=== PATIENT | female | born 1950 | race Caucasian/White ===

== ENCOUNTER 2022-07-14 11:45 | Outpatient (CLI) | payer MEDICARE, OTHER | END 2022-07-14 11:46 | disposition critical access hospital (66) | LOC: EMS 11:45 | DX: R55 Syncope and collapse (principal); R41.82 Altered mental status, unspecified; S01.511A Laceration without foreign body of lip, initial encounter; W18.39XA Other fall on same level, initial encounter; Y92.008 Other place in unspecified non-institutional (private) residence as the place of occurrence of the external cause | CPT/HCPCS: A0425; A0429 ==

== ENCOUNTER 2022-07-14 12:07 | Observation (INO) | payer MEDICARE, OTHER ==
--- NOTE | 2022-07-14 12:33 | ED Physician Documentation ---
History of Present Illness - Stated complaint Stated Complaint: SYNCOPE/FALL - Chief complaint Chief Complaint: Neuro - History obtained from History obtained from: Patient, Family, EMS - History of Present Illness Timing: Today Pain level max: 0 Pain level now: 0 - Additonal information Additional information: Patient is a 72-year-old female who presents to the emergency department after a syncopal event today. She states that she was in the bathroom and does not remember anything other than waking up on the floor. She was not using the toilet at the time. She did not have any prodrome. No headache. No chest pain. No palpitations. No lightheadedness. No dizziness. She states that she had mild body aches yesterday and took a Tylenol for this. She has taken 2 negative COVID tests. No coughing. No congestion. Does not have any history of syncope. No cardiac history. EMS reports that they did orthostatic vital signs in the field which were negative. Review of Systems Ten Systems: 10 systems reviewed and negative Constitutional: denies: Fever, Chills Throat: denies: Sore throat Cardiac: denies: Chest pain / pressure, Palpitations Respiratory: denies: Dyspnea, Cough GI: denies: Abdominal Pain, Nausea, Vomiting, Diarrhea Skin: denies: Rash Musculoskeletal: denies: Neck pain, Back pain Neurologic: denies: Headache PD PAST MEDICAL HISTORY - Past Medical History Past Medical History: Yes Cardiovascular: Hypertension - Present Medications Home Medications: Ambulatory Orders Medication Instructions Recorded Confirmed Non Formulary 30 mg PO DAILY 07/14/22 07/14/22 Valsartan 320 mg PO DAILY 07/14/22 07/14/22 amLODIPine [Norvasc] 10 mg PO DAILY 07/14/22 07/14/22 hydroCHLOROthiazide [Hydrodiuril] 25 mg PO DAILY 07/14/22 07/14/22 - Allergies Allergies/Adverse Reactions: Allergies Allergy/AdvReac Type Severity Reaction Status Date / Time Penicillins Allergy Unknown Verified 07/14/22 12:30 - Living Situation Living Situation: reports: With family Living Arrangement: reports: At home - Social History Does the pt have substance abuse?: No - Family History Family history: reports: Non contributory PD ED PE NORMAL - Vitals Vital signs reviewed: Yes - General General: Alert and oriented X 3, No acute distress, Well developed/nourished - HEENT HEENT: PERRL, Moist mucous membranes, Other (Small abrasion to the left upper lip. Normal intraoral exam. No scalp hematomas or palpable skull fractures. No facial bone tenderness or swelling.) - Neck Neck: Supple, no meningeal sign, No bony TTP - Cardiac Cardiac: RRR - Respiratory Respiratory: No respiratory distress, Clear bilaterally - Abdomen Abdomen: Soft, Non tender, Non distended - Derm Derm: Warm and dry, No rash - Extremities Extremities: No edema, No calf tenderness / cord - Neuro Neuro: Alert and oriented X 3 - Psych Psych: Normal mood, Normal affect Results - Vitals Vitals: Vital Signs - 24 hr 07/14/22 07/14/22 12:14 14:11 Temperature 38 C H Heart Rate 89 Heart Rate [ 90 Sitting] Heart Rate [ 103 H Standing] Heart Rate [ 76 Supine] Respiratory 16 Rate Blood Pressure 140/67 H Blood Pressure 131/73 H [Sitting] Blood Pressure 130/83 H [Standing] Blood Pressure 130/66 [Supine] O2 Saturation 99 Oxygen O2 Source Room air - EKG (time done) 1309 Rate: Rate (enter#) (80) Rhythm: NSR Clarence: Normal Intervals: Normal [place] QRS: Normal Ischemia: Normal ST segments - Labs Labs: Laboratory Tests 07/14/22 07/14/22 07/14/22 12:37 12:37 13:05 WBC RBC Hgb Hct MCV MCH MCHC RDW Plt Count MPV Neut # (Auto) Lymph # (Auto) [place] # (Auto) Eos # (Auto) Baso # (Auto) Absolute Nucleated RBC Nucleated RBC % Sodium 130 L Potassium 2.8 L Chloride 95 L Carbon Dioxide 21 Anion Gap 14.0 H BUN 21 H Creatinine 0.7 Estimated GFR (MDRD) 82 L Glucose 106 H Calcium 8.4 L Phosphorus 2.7 Magnesium 2.3 Total Bilirubin 1.0 AST 75 H ALT 44 Alkaline Phosphatase 55 Troponin I High Sens 10.1 Total Protein 6.6 L Albumin 3.5 Globulin 3.1 Albumin/Globulin Ratio 1.1 Lipase 32 07/14/22 Unknown WBC 7.4 RBC 4.13 L Hgb 11.8 L Hct 33.6 L MCV 81.4 MCH 28.6 MCHC 35.1 RDW 12.8 Plt Count 157 MPV 9.5 Neut # (Auto) 6.1 Lymph # (Auto) 0.8 L [place] # (Auto) 0.3 Eos # (Auto) 0.0 Baso # (Auto) 0.0 Absolute Nucleated RBC 0.00 Nucleated RBC % 0.0 Sodium Potassium Chloride Carbon Dioxide Anion Gap BUN Creatinine Estimated GFR (MDRD) Glucose Calcium Phosphorus Magnesium Total Bilirubin AST ALT Alkaline Phosphatase Troponin I High Sens Total Protein Albumin Globulin Albumin/Globulin Ratio Lipase - Rads (name of study) cxr Radiology: Final report received, EMP read contemporaneously, See rad report (no acute disease) PD MEDICAL DECISION MAKING - ED course Complexity details: reviewed results, re-evaluated patient, considered differential (No ST elevation NE, no aortic dissection, no PE, no tension pneumothorax, no aortic aneurysm), d/w patient, d/w family ED course: 72-year-old female with drop syncope today. No prodrome. Currently asymptomatic. Orthostatics negative. She is hyponatremic and hypokalemic. We will place the patient in observation for further telemetry monitoring and correction of her electrolytes. Patient does not have any cardiac history. Discussed the case with Dr. Terry, hospitalist accepts This document was made in part using voice recognition software. While efforts are made to proofread this document, sound alike and grammatical errors may occ ur. Departure - Departure Disposition: ED Place in Observation Clinical Impression: Hypokalemia, Hyponatremia Syncope Qualifiers: Syncope type: unspecified Qualified Code(s): R55 - Syncope and collapse
[2022-07-14 12:41] LABS: BASOPHILS % (AUTO) 0.4 %; HCT - HEMATOCRIT 33.6 % (37.0-47.0); HGB - HEMOGLOBIN 11.8 g/dL (12.0-16.0); LYMPHOCYTES # (AUTO) 0.8 10^3/uL (1.5-3.5); LYMPHOCYTES % (AUTO) 11.3 %; MEAN CORPUSCULAR HEMOGLOBIN 28.6 pg (27.0-31.0); MEAN CORPUSCULAR HGB CONC 35.1 g/dL (32.0-36.0); MEAN CORPUSCULAR VOLUME 81.4 fL (81.0-99.0); MEAN PLATELET VOLUME 9.5 fL (7.9-10.8); MONOCYTES # (AUTO) 0.3 10^3/uL (0.0-1.0); MONOCYTES % (AUTO) 4.5 %; NEUTROPHILS # (AUTO) 6.1 10^3/uL (1.5-6.6); NEUTROPHILS % (AUTO) 83.1 %; PLT - PLATELET COUNT 157 10^3/uL (130-450); RED BLOOD COUNT 4.13 10^6/uL (4.20-5.40); RED CELL DISTRIBUTION WIDTH 12.8 % (12.0-15.0); WHITE BLOOD COUNT 7.4 x10^3/uL (4.8-10.8)
--- NOTE | 2022-07-14 12:45 | XRAY Report ---
PROCEDURE: Chest 1 View X-Ray INDICATIONS: chest pain TECHNIQUE: One view of the chest was acquired. COMPARISON: None FINDINGS: Surgical changes and devices: None. Lungs and pleura: No pleural effusions or pneumothorax. Lungs are clear. Chronic interstitial doyle ges noted Mediastinum: Mediastinal contours appear normal. Heart size is normal. Bones and chest wall: No suspicious bony lesions. Overlying soft tissues appear unremarkable. Old healed left-sided rib fractures. IMPRESSION: Hyperinflation chronic interstitial changes as well as old healed left-sided rib fractures. No acute findings. Reviewed by: Cameron Davalos MD on 07/14/2022 11:44 AM WANDER Approved by: Cameron Davalos MD on 07/14/2022 11:44 AM WANDER Station ID: [id number]
[2022-07-14 13:01] LABS: ALBUMIN 3.5 g/dL (3.2-5.5); ALBUMIN/GLOBULIN RATIO 1.1 (1.0-2.2); CALCIUM 8.4 mg/dL (8.5-10.3); CREATININE 0.7 mg/dL (0.4-1.0); POTASSIUM 2.8 mmol/L (3.5-5.0); TOTAL PROTEIN 6.6 g/dL (6.7-8.2)
[2022-07-14 13:20] LABS: MAGNESIUM 2.3 mg/dL (1.7-2.8); PHOSPHORUS 2.7 mg/dL (2.5-4.6)
--- NOTE | 2022-07-14 13:23 | CT Report ---
PROCEDURE: CT brain without contrast INDICATIONS: syncope, head/neck pain TECHNIQUE: Noncontrast 4.5 mm thick angled axial sections acquired from the foramen magnum to the vertex. For r adiation dose reduction, the following was used: automated exposure control, adjustment of mA and/or kV according to patient size. COMPARISON: None. FINDINGS: Image quality: Excellent. CSF spaces: Basal cisterns are patent. No extra-axial fluid collections. Ventricles are normal in size and shape. Brain: No midline shift. No intracranial masses or hemorrhage. Valentine-white matter interface is norm al. Skull and face: Calvarium and visualized facial bones are intact, without suspicious lesions. Sinuses: Visualized sinuses and mastoids are clear. IMPRESSION: Mild atrophy and chronic ischemic change without intracranial hemorrhage or mass effect. Reviewed by: Cameron Davalos MD on 07/14/2022 12:22 PM WANDER Approved by: Cameron Davalos MD on 07/14/2022 12:22 PM AKDAQUAN Station ID: [id number]
--- NOTE | 2022-07-14 13:25 | CT Report ---
PROCEDURE: CT cervical spine without contrast INDICATIONS: syncope, head/neck pain TECHNIQUE: Noncontrast 3 mm thick sections acquired from the skull base to the T4 level. Sagittal and coronal r eformats were then constructed. For radiation dose reduction, the following was used: automated exp osure control, adjustment of mA and/or kV according to patient size. COMPARISON: None. FINDINGS: Image quality: Excellent. Bones: No fractures or dislocations. Visualized superior ribs are intact. Degenerative disc diseas e and arthropathy in the mid cervical spine, particularly at C5-6 Soft tissues: Prevertebral soft tissues are normal in thickness. No paravertebral hematomas. No ap ical pneumothoraces. IMPRESSION: Mild degenerative disc disease and arthropathy without fracture or traumatic malalignment Reviewed by: Cameron Davalos MD on 07/14/2022 12:23 PM AKDT Approved by: Cameron Davalos MD on 07/14/2022 12:23 PM AKDT Station ID: [id number]
[2022-07-14] MEDS ORDERED: SODIUM CHLORIDE 0.9% 1,000 ML IV STA (13:33)
[2022-07-14 15:18] LABS: B. PARAPERTUSSIS- RESP PCR PAN NOT DETECTED; B. PERTUSSIS- RESP PCR PANEL NOT DETECTED; C. PNEUMONIAE- RESP PCR PANEL NOT DETECTED; CORONAVIRUS 229E-RESP PCR NOT DETECTED; CORONAVIRUS HKU1-RESP PCR NOT DETECTED; CORONAVIRUS NL63-RESP PCR NOT DETECTED; CORONAVIRUS OC43-RESP PCR NOT DETECTED; HUMAN METAPNEUMOVIRUS NOT DETECTED; INFLUENZA A- RESP PCR PANEL NOT DETECTED; INFLUENZA B - RESP PCR PANEL NOT DETECTED; M. PNEUMONIAE- RESP PCR PANEL NOT DETECTED; PARAINFLUENZA VIRUS 1 NOT DETECTED; PARAINFLUENZA VIRUS 2 NOT DETECTED; PARAINFLUENZA VIRUS 3 NOT DETECTED; PARAINFLUENZA VIRUS 4 NOT DETECTED; RHINOVIRUS/ENTEROVIRUS NOT DETECTED; RSV- RESP PCR PANEL NOT DETECTED; SARS-CoV-2 -RESP PCR PANEL NOT DETECTED
[2022-07-14] MEDS ORDERED: SODIUM CHLORIDE FLUSH 0.9% 10 ML SYRINGE IVP PRN (15:31)
[2022-07-14] MEDS ORDERED: ONDANSETRON 4 MG/2 ML VIAL IVP PRN (15:31)
[2022-07-14] MEDS ORDERED: ACETAMINOPHEN 325 MG TABLET PO PRN (15:31)
--- NOTE | 2022-07-14 15:56 | HISTORY & PHYSICAL EXAMINATION ---
Chief Complaint - Chief Complaint Chief Complaint: Syncope at home, brought in by ambulance History of Present Illness - Admitted From Admitted From:: ED - History Obtained From History obtained from: ED provider and the patient - History of Present Illness HPI Comment/Other: This is a 72-year-old white female with history of hypertension on 3 medications (amlodipine, valsartan and HCTZ). She has never been seen here before. She was brought in by ambulance after syncope at home. She gave history to the ED provider that with walking in her home in the middle the night, and as she entered the bathroom she had a syncopal event and found herself on the floor. She had no prodrome of lightheadedness, palpitations, chest pain, shortness of breath, or tunnel vision. She has never had syncope before. According to the EMS run sheet, syncope occurred twice but she can only remember once and does not know if she fell and then as she tried to get up possibly had syncope again. The EMS team did not clarify in person the details of the "syncope x 2" entry. They told the ED provider that they checked orthostatic vital signs on the scene and that these were normal, but orthosstatics are not documented on the EMS run sheet. Patient states that she started seeing a new PCP (the last 1 retired) and she had a blood pressure of 200/100 in February and was started on valsartan. After 3 weeks her blood pressure was still elevated and he put her on amlodipine then 1 week later added HCTZ. She herself wondered if this was too many blood pressure medications to be started all within just 4 weeks. Five days ago she developed a fever and chills, no appetite and fatigue and thought she had COVID. She tested at home and was COVID-negative. She mostly stayed in bed or on the couch resting and had a poor appetite but no nausea and vomiting. She drank a lot of water she. She only ate little bites of fruit. Two days ago she started to have diarrhea without any pain or cramping. Through all these days, she was compliant with taking all 3 of her blood pressure medi cations. Last night she had chills and night sweats. This morning she went to the bathroom and after having diarrhea on the toilet, she was walking back to the bed and fell in the bathroom. The heard her fall and came to the bathroom and found her on the floor and she was waking up but was very confused. He helped her stand and she was walking to the bedroom and she had another syncopal episode associated with vomiting of bile. This kis when he called 911. In the ED, she had C-spine and Head CT imaging which ruled out trauma or bleed and she was found to have marked hyponatremia and hypokalemia on labs. IV saline was started. She then had orthostatic vital signs measured in the ED which were normal. She tested Covid (-). The ED provider has reached out to the Hospitalist team to have this patient placed in Observation to evaluate syncope. History - Past Medical History Cardiovascular: reports: Hypertension Endocrine/Autoimmune: reports: HyPOthyroidism (Takes T3 replacement) - Family & Social History Family History Comment/Other: No diseases run in the family. She has had 2 natural children, 1 adult daughter from [employer]. Living arrangement: At home Living Situation: With spouse/s.o. Social History Notes: She is a non-smoker and never smoked. She drinks rare to occasional wine. 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 - Substance History Use: Uses substance without health or social issues: NONE Meds/Allgy - Home Medications Home Medications: Ambulatory Orders Medication Instructions Recorded Confirmed Non Formulary 30 mg PO DAILY 07/14/22 07/14/22 Valsartan 320 mg PO DAILY 07/14/22 07/14/22 amLODIPine [Norvasc] 10 mg PO DAILY 07/14/22 07/14/22 hydroCHLOROthiazide [Hydrodiuril] 25 mg PO DAILY 07/14/22 07/14/22 - Allergies Allergies/Adverse Reactions: Allergies Allergy/AdvReac Type Severity Reaction Status Date / Time Penicillins Allergy Unknown Verified 07/14/22 12:30 Review of Systems - Constitutional Constitutional: reports: Fatigue, Fever, Chills, Weakness, Poor appetite - Gastrointestinal Gastrointestinal: reports: Abdominal distention, Diarrhea (x2 days) - All Other Systems All Other Systems: reports: Reviewed and negative Exam - Vital Signs Vital Signs: Vital Signs x48h Temp Pulse Pulse Pulse Pulse Resp BP 07/14/22 15:38 37.9 C 79 12 122/60 07/14/22 14:20 81 12 130/83 H 07/14/22 14:11 90 103 H 76 07/14/22 12:14 38 C H 89 16 140/67 H BP BP BP Pulse Ox 07/14/22 15:38 98 07/14/22 14:20 98 07/14/22 14:11 131/73 H 130/83 H 130/66 07/14/22 12:14 99 - Physical Exam General Appearance: positive: No acute distress, Alert ENT: positive: Dry mucous membranes Neck: positive: Nml inspection, No JVD Respiratory: positive: No respiratory distress, Breath sounds nml Cardiovascular: positive: Regular rate & rhythm, No murmur Abdomen: positive: Non-tender, Nml bowel sounds, No distention Skin: positive: Warm, Dry Extremities: positive: Non-tender, No pedal edema Neurologic/Psychiatric: positive: Oriented x3 (Non-focal. She has a poor memory of the last 3-4 days.) Conclusion/Plan - Problem List (1) Syncope Conclusion/Plan: The combination of Hx and symptom description is typical for volume depletion from a viral syndrome/gastroenteritis with diarrhea, and orthostasis from still taking her 3 blood pressure medications as prescribed Given the electrolyte abnormalities but normal EKG, volume depletion and orthostasis is therefore the most likely cause of her syncope. The patient will be placed in Observation status, on telemetry. Obtain an Echo to evaluate cardiac structures. Cycle troponins x1 more Correct her hypokalemia. Continue iv saline to correct hyponatremia. Check orthostatic vital signs every shift. Qualifiers: Syncope type: unspecified Qualified Code(s): R55 - Syncope and collapse (2) Hyponatremia Conclusion/Plan: Likely this is from "drinking a lot of water" over the 4 days that she has had her viral syndrome. Possibly also worsened by being on HCTZ Stop HCTZ. Begin IV saline. Follow BMP daily (3) Hypokalemia Conclusion/Plan: This is likely from poor diet while sick with viral syndreome and being on HCTZ Stop HCTZ. Begin potassium riders for replacement. Add potassium to the saline hydration IV. Follow BMP daily (4) Hx of essential hypertension Conclusion/Plan: Patient is on 3 different blood pressure medications at home which seemed rather excessive. She describes that these were quickly added on over the course of just 1 month which also seems too rapid. Her HCTZ will be stopped as described above. Will obtain orthostatic vital sign checks before any of her other 2 medications for blood pressure will be resumed. I suspect that she has "whitecoat hypertension" and has very high blood pressures in the PCP office but not quite so elevated at home. She very likely will only need 1 BP med restarted when she is discharged. I have advised her that she should measure her blood pressure at home daily, at the same time, document these on a log, bring this in to her PCP, who should then use these BP readings for further med adjustments. (5) Gastroenteritis Conclusion/Plan: Patient gives a deep detailed history of 5 days of fever with chills, no appetite then diarrhea for the last 1-2 day. This is very likely a viral syndrome and will run its course. She tested Covid neg and has had no pulmonary sx. Her WBC and abdominal exam is benign therefore will not order abdominal CT imaging at this time or order stool cx. Continue with the IV fluids as described above. We will change her regular diet to easily digestible diet, to advance slowly (6) Hypothyroidism Conclusion/Plan: Her T3 medication has not been reconciled by pharmacy. We will check a TSH in the morning to assess if the thyroid had adequate replacem,ent - Lab Results Fish Bones: 07/14/22 Unknown 07/14/22 12:37 - Diagnostic Imaging Results Diagnostic Imaging Results: positive: Final report reviewed
[2022-07-14 16:19] LABS: BILIRUBIN,URINE NEGATIVE (NEGATIVE); GLUCOSE, URINE (UA) NEGATIVE (NEGATIVE); KETONES,URINE (UA) 40 mg/dL (NEGATIVE); LEUKOCYTE ESTERASE, URINE NEGATIVE (NEGATIVE); NITRITE,URINE NEGATIVE (NEGATIVE); OCCULT BLOOD,URINE NEGATIVE (NEGATIVE); PH,URINE 6.5 PH (5.0-7.5); PROTEIN,URINE NEGATIVE (NEGATIVE); UROBILINOGEN,URINE 0.2 (NORMAL) E.U./dL (NORMAL)
[2022-07-14] MEDS: NS W/20 MEQ KCL 1,000 ML IV SCH (16:21)
[2022-07-14 16:23] LABS: CLARITY,URINE CLEAR (CLEAR)
[2022-07-14] MEDS: POTASSIUM CHLOR 10 MEQ/100 ML 10 MEQ/100 ML BAG IV SCH ×4 (16:24→19:20)
[2022-07-14] MEDS: SODIUM CHLORIDE FLUSH 0.9% 10 ML SYRINGE IVP SCH (17:23)
[2022-07-15] MEDS: NS W/20 MEQ KCL 1,000 ML IV SCH ×2 (01:39→11:08)
[2022-07-15] MEDS: SODIUM CHLORIDE FLUSH 0.9% 10 ML SYRINGE IVP SCH ×2 (02:44→11:11)
[2022-07-15 04:35] LABS: BASOPHILS % (AUTO) 0.7 %; HCT - HEMATOCRIT 31.6 % (37.0-47.0); HGB - HEMOGLOBIN 10.9 g/dL (12.0-16.0); LYMPHOCYTES # (AUTO) 0.9 10^3/uL (1.5-3.5); LYMPHOCYTES % (AUTO) 29.4 %; MEAN CORPUSCULAR HEMOGLOBIN 28.2 pg (27.0-31.0); MEAN CORPUSCULAR HGB CONC 34.5 g/dL (32.0-36.0); MEAN CORPUSCULAR VOLUME 81.9 fL (81.0-99.0); MONOCYTES # (AUTO) 0.3 10^3/uL (0.0-1.0); MONOCYTES % (AUTO) 9.2 %; NEUTROPHILS # (AUTO) 1.8 10^3/uL (1.5-6.6); NEUTROPHILS % (AUTO) 60.4 %; PLT - PLATELET COUNT 158 10^3/uL (130-450); RED BLOOD COUNT 3.86 10^6/uL (4.20-5.40); RED CELL DISTRIBUTION WIDTH 12.9 % (12.0-15.0)
[2022-07-15 04:46] LABS: CREATININE 0.6 mg/dL (0.4-1.0); MAGNESIUM 2.2 mg/dL (1.7-2.8); POTASSIUM 3.4 mmol/L (3.5-5.0)
--- NOTE | 2022-07-15 11:59 | PHARMACY PROGRESS NOTE ---
- Best Possible Medication History Admit Date and Time: 07/14/22 1531 Processed by: Pharmacy Medication History completed: Yes Patient Interview: Completed As the person ultimately responsible for medication therapy, providers are able to order a medication from an existing home medication list in [facility] via the "Reconcile Routine" prior to Confirmation of that medication by network support specialist. Such practice is discouraged except when the physician, in their clinical luciana gment, deems that a medical need exists for a medication without regard to previous use.
--- NOTE | 2022-07-15 15:25 | Discharge Plan ---
Discharge Plan Problem Reviewed?: Yes Disposition: Home, Self Care Condition: Fair Prescriptions: Potassium Chloride [K-Dur] 20 meq PO DAILY #2 tablet Diet: Soft Activity Restrictions: Activity as Tolerated Shower Restrictions: No Driving Restrictions: Yes (You need clearance to resume driving) Instruction Topics: Syncope Tx Prevent Health Concerns: The combination of symptom you had was typical for volume depletion from a viral syndrome/gastroenteritis with diarrhea, and from still taking your 3 blood pressure medications as prescribed. You were found to have low sodium and low potassium in your bloodstream and your blood pressure dropped with standing. Your heart rhythm on telemetry and your Echocardiogram of your heart were normal. You have received over a day of IV fluids to replenish your body. You are being discharged home and advised to still "push" fluids for 2-3 days, preferably fluids which contain electrolytes (like chicken broth or juices, not just water). And 2 days of potassium replacement is being prescribed for you. The prescription order was electronically sent to your [facility] pharmacy in [place]. DO NOT TAKE ANY OF YOUR BLOOD PRESSURE MEDICATIONS UNTIL Tuesday07/18/22. Then ONLY RESUME taking the Valsartan. Start documenting a written log of daily blood pressure measurements, taken roughly at the same time every day. Bring this proof of your blood pressure readings to your primary care doctor at your next visit. Plan of Treatment: As above. Because you fainted twice, you need clearance to resume driving or operating heavy machinery. This should come from your PCP. You should have a hospital follow-up visit with your doctor in the next 5-7 days. Care Goals: Improvement in symptoms and stabilization are the goals. Assessment: The patient understands and is agreeable with the plan. Additional Instructions or Follow Up instructions: If you have any new or worsening symptoms, call your PCP for advice or come to the ED. No Smoking: If you smoke, Please STOP! Call for help. Follow-up with: MAYDA RAJAN MD [Physician No Access] -
[2022-07-15 15:38] VITALS: BP 131/60
--- NOTE | 2022-07-15 16:23 | DISCHARGE SUMMARY ---
Discharge Summary Admit Date: 07/14/22 Discharge Date: 07/15/22 Discharging Provider: Dr Brittani Terry Primary Care Provider: Dr Kurt Rubi Code Status: Attempt Resuscitation Condition at Discharge: Fair Discharge Disposition: 01 Home, Self Care - HPI History of Present Illness: This is a 72-year-old white female with history of hypertension on 3 medications (amlodipine, valsartan and HCTZ). She has never been seen here before. Patient states that she started seeing a new PCP (the last 1 retired) and she had a blood pressure of 200/100 in February of this year and was started on valsartan. After 3 weeks her blood pressure was still elevated and he put her on amlodipine then 1 week later added HCTZ. She herself wondered if this was too many blood pressure medications to be started all within just 4 weeks. Five days ago she developed a fever and chills, had no appetite and fatigue and thought she had COVID. She tested at home and was COVID-negative. She mostly stayed in bed or on the couch resting and had a poor appetite but no nausea and vomiting. She drank a lot of water and only ate little bites of fruit. Two days ago she started to have diarrhea without any pain or cramping. Through all these days, she was compliant with taking all 3 of her blood pressure medications. Last night she had chills and night sweats. This morning she went to the bathroom and after having diarrhea on the toilet, she started walking back to the bed and fell in the bathroom. The heard her fall and came to the bathroom and found her on the floor and she was waking up but was very confused. He helped her stand and she was walking again to the bedroom and she had another syncopal episode associated with vomiting of bile. This is when the called 911. EMS told the ED provider that they checked orthostatic vital signs on the scene and that these were normal, but orthosstatics are not documented on the EMS run sheet. In the ED, she had C-spine and Head CT imaging which ruled out trauma or bleed and she was found to have marked hyponatremia and hypokalemia on labs. IV saline was started. She tested Covid (-). The ED provider has reached out to the Hospitalist team to have this patient placed in Observation to evaluate syncope. - HOSPITAL COURSE Hospital Course: (1) Syncope She was orthostatic when checked here. The combination of having a viral syndr ome while on 3 BP meds led to her having syncope. All her BP meds were on hold and she got iv saline hydration until discharge. Her telemetry showed no arrhythmias, her troponins and Echo were WNL and her orthostasis improved by the next day and she was discharged. She was advised to "push" fluids for the next 2 to 3 days, not to resume any blood pressure meds for 2 more days and that she needs to be cleared to resume driving by seeing a provider next week. 2) Orthostasis As in #1 (3) Hyponatremia Likely this was from "drinking a lot of water" over the 5 days that she had her viral syndrome, and possibly also worsened by being on HCTZ. We stopped her HCTZ. She received iv saline and serum Na was 137 at discharge. (4) Hypokalemia Her Potassium level of 2.8 was likely from poor diet while being sick and from being on HCTZ. Her K was replaced with iv Riders. We stopped her HCTZ. She was given KCl 20 mEq daily to take for 2 more days after discharge. (5) Hx of essential hypertension Patient was on 3 different blood pressure medications at home and described that these were quickly added, over the course of just 1 month, which seems too rapid and excessive. I suspect that she has "whitecoat hypertension" and has very high blood pressures in the PCP office but not quite so elevated at home. None of her BP meds were given while here, due to soft BPs plus having orthostasis. Her HCTZ and Amlodipine will be stopped going forward and she was advise to resume just Valsartan in 2 days. I have advised her that she should measure her blood pressure at home daily, at the same time, document these on a log, bring this log in to her PCP, who should then use these BP readings for further med adjustments. (6) Gastroenteritis Patient gave a detailed history of 5 days of fever with chills, no appetite then diarrhea for 1-2 day. This was very likely a viral syndrome and will run its course. She tested Covid neg and had no pulmonary sx. Her WBC and abdominal exam were benign thus no abdominal CT imaging was done. She was on a pureed then soft bland diet. (7) Hypothyroidism Her T3 medication was not reconciled by pharmacy by the time she was ready for [facility], thus she missed one day. Her serum TSH was 1.78 (normal range), indicating adequate replacement. - ALLERGIES Allergies/Adverse Reactions: Allergies Allergy/AdvReac Type Severity Reaction Status Date / Time Penicillins Allergy Unknown Verified 07/14/22 12:30 - MEDICATIONS Home Medications: Ambulatory Orders Medication Instructions Recorded Confirmed Valsartan 320 mg PO DAILY 07/14/22 07/14/22 Ascorbic Acid [Vitamin C] 500 mg PO DAILY 07/15/22 07/15/22 Calcium Carb/Magnesium Hydrox 1 each PO DAILY 07/15/22 07/15/22 [Antacid Extra Strngth Tab Chew] Cholecalciferol (Vitamin D3) 1,000 unit PO DAILY 07/15/22 07/15/22 [Vitamin D3] Multivitamin [Theragran] 1 tab PO DAILY 07/15/22 07/15/22 Potassium Chloride [K-Dur] 20 meq PO DAILY #2 tablet 07/15/22 Thyroid,Pork [[place] Thyroid] 30 mg PO DAILY 07/15/22 07/15/22 - PHYSICAL EXAM AT DISCHARGE General Appearance: positive: No acute distress, Alert Eyes Bilateral: positive: Normal inspection, EOMI ENT: positive: No signs of dehydration, Other (Bruised and puffy L upper lip) Neck: positive: Nml inspection, No JVD Respiratory: positive: No respiratory distress, Breath sounds nml Cardiovascular: positive: Regular rate & rhythm, No murmur Abdomen: positive: Non-tender, Nml bowel sounds, No distention Skin: positive: Warm, Dry Extremities: positive: Non-tender, No pedal edema Neurologic/Psychiatric: positive: Oriented x3 (Non-focal) - LABS Result Diagrams: 07/15/22 04:29 07/15/22 04:29 - DIAGNOSTIC IMAGING Diagnostic Imaging Results: Final report reviewed - FOLLOW UP Follow Up: See PCP in 5-7 days or see Urgent Care next week to get clearance to resume driving. - TIME SPENT Time Spent in Discharge (Minutes): 30
== END 2022-07-15 17:00 | disposition home or self-care (01) ==
LOC: ED 12:07 → MS2 15:31
PROVIDERS: ADMIT Internal Medicine; ATTEND Internal Medicine
DX: R55 Syncope and collapse (principal); S00.511A Abrasion of lip, initial encounter; W19.XXXA Unspecified fall, initial encounter; Y92.002 Bathroom of unspecified non-institutional (private) residence as the place of occurrence of the external cause; R07.9 Chest pain, unspecified; R51.9 Headache, unspecified; M54.2 Cervicalgia; E87.1 Hypo-osmolality and hyponatremia; E87.6 Hypokalemia; K52.9 Noninfective gastroenteritis and colitis, unspecified; I10 Essential (primary) hypertension; E03.9 Hypothyroidism, unspecified; Z20.822 Contact with and (suspected) exposure to COVID-19; Z79.899 Other long term (current) drug therapy
CPT/HCPCS: 36415; 70450; 71045; 72125; 80048; 80053; 81003; 83690; 83735; 84100; 84443; 84484; 85025; 87633; 93005; 93306; 96361; 96365; 96366; 96376; 99283; 99285; A9270; G0378; 81001; 87086

== ENCOUNTER 2022-08-22 16:00 | Emergency (ER) | payer MEDICARE, OTHER ==
[2022-08-22 16:36] LABS: BASOPHILS # (AUTO) 0.1 10^3/uL (0.0-0.1); BASOPHILS % (AUTO) 0.8 %; EOSINOPHILS # (AUTO) 0.1 10^3/uL (0.0-0.7); HCT - HEMATOCRIT 39.6 % (37.0-47.0); HGB - HEMOGLOBIN 12.8 g/dL (12.0-16.0); LYMPHOCYTES # (AUTO) 1.4 10^3/uL (1.5-3.5); LYMPHOCYTES % (AUTO) 22.1 %; MEAN CORPUSCULAR HEMOGLOBIN 27.4 pg (27.0-31.0); MEAN CORPUSCULAR HGB CONC 32.3 g/dL (32.0-36.0); MEAN CORPUSCULAR VOLUME 84.6 fL (81.0-99.0); MEAN PLATELET VOLUME 8.9 fL (7.9-10.8); MONOCYTES # (AUTO) 0.4 10^3/uL (0.0-1.0); MONOCYTES % (AUTO) 6.2 %; NEUTROPHILS # (AUTO) 4.3 10^3/uL (1.5-6.6); NEUTROPHILS % (AUTO) 69.6 %; PLT - PLATELET COUNT 347 10^3/uL (130-450); RED BLOOD COUNT 4.68 10^6/uL (4.20-5.40); RED CELL DISTRIBUTION WIDTH 13.4 % (12.0-15.0); WHITE BLOOD COUNT 6.1 x10^3/uL (4.8-10.8)
--- NOTE | 2022-08-22 16:41 | XRAY Report ---
PROCEDURE: Chest 1 View X-Ray INDICATIONS: Chest Pain TECHNIQUE: One view of the chest was acquired. COMPARISON: CXR 07/14/2022. FINDINGS: Surgical changes and devices: None. Lungs and pleura: No pleural effusions or pneumothorax. Lungs are clear. Mediastinum: Mediastinal contours appear normal. Heart size is normal. Bones and chest wall: No suspicious bony lesions. Prior left-sided rib fractures. Overlying soft tis sues appear unremarkable. IMPRESSION: No acute cardiopulmonary abnormality. Reviewed by: Vern Greenberg MD on 08/22/2022 3:40 PM WANDER Approved by: Vern Greenberg MD on 08/22/2022 3:40 PM WANDER Station ID: [id number]
[2022-08-22 16:44] LABS: INR 1.1 (0.8-1.2); PT - PROTHROMBIN TIME 11.8 secs (9.9-12.6)
[2022-08-22 16:52] LABS: ALBUMIN 4.3 g/dL (3.2-5.5); ALBUMIN/GLOBULIN RATIO 1.3 (1.0-2.2); BILIRUBIN,TOTAL 0.7 mg/dL (0.2-1.0); CALCIUM 9.3 mg/dL (8.5-10.3); CREATININE 0.6 mg/dL (0.4-1.0); POTASSIUM 3.6 mmol/L (3.5-5.0); TOTAL PROTEIN 7.7 g/dL (6.7-8.2)
--- NOTE | 2022-08-22 18:09 | ED Physician Documentation ---
History of Present Illness - Stated complaint Stated Complaint: CHEST PX,HIGH BP - Chief complaint Chief Complaint: Cardiac - Additonal information Additional information: 72-year-old female presents to the emergency department for evaluation of elevated blood pressure and chest pressure. She was admitted to this hospital and mid-to-late June after syncope. She was found to be hypokalemic. She had recently been started on 3 different blood pressure medications over the course of a short amount of time which may have contributed to the syncopal episode. She was also described as having significant whitecoat syndrome. Since discharge she has been followed by her primary care provider and is currently on losartan and amlodipine. She does check her blood pressures frequently and found that they were about 180/90 over the last 2 days which is caused her to worry a lot. She also began having some chest pressure last night. No nausea no vomiting. The chest pressure actually improved when she got her mind off things and was able to take a long walk. She is followed closely by the [facility]. Review of Systems Constitutional: reports: Reviewed and negative Nose: reports: Reviewed and negative Throat: reports: Reviewed and negative Cardiac: reports: Chest pain / pressure. denies: Palpitations, Pedal edema, Calf pain Respiratory: reports: Reviewed and negative GI: reports: Reviewed and negative : reports: Reviewed and negative Skin: reports: Reviewed and negative Musculoskeletal: reports: Reviewed and negative PD PAST MEDICAL HISTORY - Past Medical History Cardiovascular: Hypertension Endocrine/Autoimmune: HyPOthyroidism (Takes T3 replacement) - Present Medications Home Medications: Ambulatory Orders Medication Instructions Recorded Confirmed Valsartan 320 mg PO DAILY 07/14/22 08/22/22 Ascorbic Acid [Vitamin C] 500 mg PO DAILY 07/15/22 08/22/22 Calcium Carb/Magnesium Hydrox 1 each PO DAILY 07/15/22 08/22/22 [Antacid Extra Strngth Tab Chew] Cholecalciferol (Vitamin D3) 1,000 unit PO DAILY 07/15/22 08/22/22 [Vitamin D3] Multivitamin [Theragran] 1 tab PO DAILY 07/15/22 08/22/22 Thyroid,Pork [[place] Thyroid] 30 mg PO DAILY 07/15/22 08/22/22 Amlodipine Besylate [Norvasc] 10 mg PO DAILY 08/22/22 08/22/22 - Allergies Allergies/Adverse Reactions: Allergies Allergy/AdvReac Type Severity Reaction Status Date / Time Penicillins Allergy Unknown Verified 08/22/22 16:08 - Social History Smoking Status: Never smoker Does the pt have substance abuse?: No PD ED PE NORMAL - General General: Alert and oriented X 3, No acute distress, Well developed/nourished - HEENT HEENT: Atraumatic, Moist mucous membranes - Neck Neck: Supple, no meningeal sign, No adenopathy - Cardiac Cardiac: RRR, No murmur, No gallop - Respiratory Respiratory: No respiratory distress, Clear bilaterally - Abdomen Abdomen: Normal bowel sounds, Soft - Back Back: No CVA TTP - Derm Derm: Normal color, Warm and dry - Extremities Extremities: No deformity - Neuro Neuro: Alert and oriented 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, 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 Eye Opening: Spontaneous Motor: Obeys Commands Verbal: Oriented GCS Score: 15 Results - Vitals Vitals: Vital Signs - 24 hr 08/22/22 16:02 Temperature 36.8 C Heart Rate 93 Respiratory 16 Rate Blood Pressure 160/78 H O2 Saturation 99 Oxygen O2 Source Room air - EKG (time done) 1609 Rate: Rate (enter#) (83) Rhythm: NSR [place]: Normal Intervals: Normal VA QRS: Normal Ischemia: Normal ST segments Compare to prior EKG: Unchanged from prior EKG Computer interpretation: Agree with computer - Labs Labs: Laboratory Tests 08/22/22 08/22/22 08/22/22 16:31 16:31 16:31 WBC 6.1 RBC 4.68 Hgb 12.8 Hct 39.6 MCV 84.6 MCH 27.4 MCHC 32.3 RDW 13.4 Plt Count 347 MPV 8.9 Neut # (Auto) 4.3 Lymph # (Auto) 1.4 L Mobile # (Auto) 0.4 Eos # (Auto) 0.1 Baso # (Auto) 0.1 Absolute Nucleated RBC 0.00 Nucleated RBC % 0.0 PT 11.8 INR 1.1 Sodium 138 Potassium 3.6 Chloride 102 Carbon Dioxide 24 Anion Gap 12.0 BUN 14 Creatinine 0.6 Estimated GFR (MDRD) 98 Glucose 110 H Calcium 9.3 Total Bilirubin 0.7 AST 25 ALT 19 Alkaline Phosphatase 63 Troponin I High Sens B-Natriuretic Peptide Total Protein 7.7 Albumin 4.3 Globulin 3.4 Albumin/Globulin Ratio 1.3 Lipase 31 08/22/22 08/22/22 16:31 16:31 WBC RBC Hgb Hct MCV MCH MCHC RDW Plt Count MPV Neut # (Auto) Lymph # (Auto) Mobile # (Auto) Eos # (Auto) Baso # (Auto) Absolute Nucleated RBC Nucleated RBC % PT INR Sodium Potassium Chloride Carbon Dioxide Anion Gap BUN Creatinine Estimated GFR (MDRD) Glucose Calcium Total Bilirubin AST ALT Alkaline Phosphatase Troponin I High Sens 3.2 B-Natriuretic Peptide 21 Total Protein Albumin Globulin Albumin/Globulin Ratio Lipase - Rads (name of study) cxr Radiology: Final report received (No acute cardiopulmonary process) PD MEDICAL DECISION MAKING - ED course Complexity details: reviewed results, re-evaluated patient, considered differential, d/w patient ED course: This is a well-appearing 72-year-old female who reports a history of anxiety and significant whitecoat syndrome who comes in the ER concerned that her blood pressure is not being well managed. She was admitted to this hospital just over 1 month ago after syncopal episode and found to have hypokalemia. This was lik augusto due to recently being started on 3 different antihypertensives. Her diuretic has subsequently been stopped. At home her blood pressure pressures have been about 180/90. Though here in the emergency department they are about 170/80. Here in the emergency department chest x-ray and EKG are entirely unremarkable. CBC electrolytes and biomarker for troponin are entirely negative. She felt re assured seeing an improved blood pressure on presentation to the ER. I discussed with the patient that it would not be prudent at this time to adjust her blood pressure medications and I would like her primary care doctor to be making these adjustments. She will be in contact with them tomorrow. Clinically I have no suspicion for ACS. Nonischemic EKG as well as a negative biomarker with an episode of pain more than 24 hours ago is not consistent with angina. In addition walking rest made this better. She should however continue to follow-up to determine if she would benefit from a stress test. Patient is discharged home in stable condition. Emergent return precautions discussed Departure - Departure Disposition: 01 Home, Self Care Clinical Impression: Essential hypertension, Chest pressure Condition: Stable Record reviewed to determine appropriate education?: Yes Comments: Elvia you were seen today in the emergency department because you have noted some elevated blood pressures at home over the last few days. You also had some palpitations and pain in your chest. Today in the emergency department your CBC and electrolytes are entirely unremarkable. You are not having a heart attack. Your blood pressure is mildly elevated but instead of starting a new medication here through the emergency department I would like you to discuss this with your primary care doctor. I recommend that you check your blood pressure twice daily. The first pressure in the morning should be 1 hour after taking your blood pressure medicines. Please discuss with your doctor that you were seen in the emergency department. Tell them that your EKG, chest x-ray and labs were entirely normal but that you are noting elevated blood pressures at home. I would like them to make suggestions on further management. Please return to the emergency department if you develop chest pain, have any further fainting episodes, are severely short of breath or have any other emergent concerns
[2022-08-22 18:25] VITALS: BP 150/80
== END 2022-08-22 18:26 | disposition home or self-care (01) ==
LOC: ED 16:00
DX: I10 Essential (primary) hypertension (principal); R07.89 Other chest pain
CPT/HCPCS: 36415; 80053; 83690; 83880; 84484; 85025; 85610; 93005; 99284